=== PATIENT | male | born 1965 | race Caucasian/White ===

== ENCOUNTER → 2016-09-18 | Outpatient (CLI) | payer BC ==
[~2016-09-18] MED LIST: ASPIRIN81 MG PO; DULOXETINE 30MG30 MG PO; LAMISIL 250MG250 MG PO; LIPITOR20 MG PO; LISINOPRIL 10MG10 MG PO; METOPROLOL TART25 MG PO; PERCOCET 10 MG1 EACH PO
[2016-09-18 17:03] LABS: AMPHETAMINES/METAMPHETAMINES NEGATIVE ng/mL (<1000)
[2016-09-24 14:36] LABS: Opiates Negative (Cutoff=100)
== END ==
LOC: LAB 15:01
PROVIDERS: Anesthesiology
DX: Z79.899 Other long term (current) drug therapy (principal)

== ENCOUNTER → 2017-04-15 | Outpatient (CLI) | payer BC ==
[2017-04-15 12:19] LABS: LYMPH # 1.9 K/mm3 (0.7-4.5); LYMPH % 23.8 % (10-50)
[2017-04-15 17:02] LABS: BUN 11 mg/dL (7-18)
[2017-04-15 17:25] LABS: GFR (ESTIMATED) 78 ML/MIN (>60)
== END ==
LOC: LAB 11:56
PROVIDERS: Anesthesiology
DX: M51.16 Intervertebral disc disorders with radiculopathy, lumbar region (principal); Z01.812 Encounter for preprocedural laboratory examination

== ENCOUNTER 2017-04-16 08:04 | Day surgery (SDC) | payer BC ==
[~2017-04-16] VITALS: Ht 175.3 cm; Wt 100.7 kg
--- NOTE | 2017-04-16 10:33 | Operative Note ---
Surgeon/Diagnoses Surgeon/Front Office Coordinator(s) Date of procedure: 04/16/17 Surgeon: Vadim Vale MD Diagnoses Pre-op diagnosis: Degenerative disc disease of lumbar spine with lumbar radiculopathy symptoms Post-op diagnosis Same Procedure Procedure Procedure: Spinal cord stimulator trial with 2 epidural leads Indications: ALONDRA HAYWARD is a 51 year-old Male with a history of low back pain with lumbar radiculopathy symptoms. He has failed all conservative therapy including injections, oral medications, physical therapy and he is not a surgical candidate. He has significant pain in his back going down both legs RIGHT greater than LEFT. He has a successful neuropsychological evaluation. I have talked to him about spinal cord stimulation as he has more leg pain than back pain. I've answer all questions and explained the risk and benefits. He presents for spinal cord stimulator trial with 2 epidural leads today. Findings: None Procedure Description: Informed consent was obtained and the risk and benefits of the procedure was explained to the patient. The patient was taken to the procedure room and placed prone on the procedure table. He was prepped and draped in sterile fashion. He did receive antibiotics preoperatively. He was sedated with Versed and fentanyl. C-arm fluoroscopy was used to view the lumbar spine. The skin and septated tissues were dissected using lidocaine. A 17-gauge Touhy epidural needle was inserted and advanced into the L3-L4 interspace. After confirmation of needle placement in the epidural space stimulating lead was inserted and advanced very easily to the T9 T10 T11 vertebral bodies. We underwent test stimulation. Patient felt good stimulation down both legs. We placed a second needle into the L4-L5 interspace. Again after advancing into the epidural space using loss-of- resistance to air and fluoroscopic guidance a stimulating lead was inserted and advanced very easily to the T9-T10 and T11 vertebral bodies to the RIGHT of the first lead. We tested both leads. Impedances were found to be okay. Both leads covered all areas of pain from low back all the way to the feet. Patient tolerated the procedure well with no palpitations. Clemmons were withdrawn and the leads were secured in place. The patient was taken to recovery in stable condition. The patient was programmed by the [employer] agency sales representative. EBL (ml): 0 Anesthesia: LMAC Implants: Temporary spinal cord stimulator leads Complications: None Disposition Disposition: Plan and disposition: We will follow-up with this patient in 2-3 days to reprogram and then next week to pull his leads. If he has any problems or questions he is to call us in the pain clinic. at [phone]
[2017-04-16 14:10] VITALS: BP 118/82
--- NOTE | 2017-04-16 14:29 | CONSULT NOTE ---
History of Present Illness Consult Information Date of Consultation: 04/16/17 Referring Provider: Vadim Vale MD Reason for Consult/Visit: Possible neuro stimulator implant History of Present Illness: This patient is 51-year-old white male who is being treated for low back pain with lumbar radiculopathy symptoms. He continues to have significant pain in his legs and is burning in his feet. He is currently in a neurostimulator trial with [employer]. Patient is having no pain at this time. Patient will continue the trial for several days. Patient wants permanent placement if trial is successful. Allergies Coded Allergies: Penicillins (NA-HALLUCINATIONS 04/16/17) Current Home Medications Active Scripts Oxycodone 10 Mg\[id number] (Oxycodone-Acetaminophen 10-325) 1 TAB PO TIDP PRN PAIN #90 TAB Prov: 02/03/17 Reported Medications Aspirin 81 MG PO DAILY Metoprolol Tartrate 25 MG PO DAILY LISINOPRIL (Lisinopril) 10 MG PO DAILY Atorvastatin Calcium (Lipitor 20MG) 20 MG PO DAILY Duloxetine Hcl (Duloxetine 30MG Capsule) 60 MG PO DAILY Terbinafine Hydrochloride (Lamisil 250MG Tablet) 250 MG PO DAILY Medical/Surgical/Social Hx Medical History Hypertension, kidney stones, gastroesophageal reflux disease Surgical History Previous Surgery?Y PINCHED NERVE IN NECK LEFT ELBOW Social History Tobacco Use: N Type: Packs/day: If you ae a former smoker-when did you quit? Have you smoked in the last 30 days? Do you dip or chew tobacco? Are you exposed to second hand smoke? Alcohol/Drug Use: Denies Occupation: factory Marital Status: Support System: good Review of Systems ROS Systems reviewed and negative: , allergy/immunity, cardiovascular, constitutional, endocrine, Ear/Nose/Throat, eyes, heme, psychiatric, respiratory , skin Physical Exam/Findings Physical Exam Vital Signs Vital Signs Date Time Temp Pulse Resp B/P Pulse O2 O2 Flow FiO2 Ox Delivery Rate 04/16 1410 97.9 73 18 118/82 92 04/16 1206 65 18 137/80 92 04/16 1137 65 18 128/85 92 04/16 1135 68 18 132/89 92 04/16 1134 97.9 70 18 123/75 93 04/16 1130 97.9 73 18 121/67 93 04/16 0843 97.9 81 18 137/93 04/16 0838 97.9 81 18 137/93 96 General Appearance normal appearance Respiratory Status No: respiratory distress. Cardiovascular regular rate/rhythm Back gait normal, strt leg raising(L)-ABNL, strt leg raising(R)-ABNL, vertebral tenderness Neurologic alert, oriented x 3, sensory deficit (BLE) Mental status normal mood/affect Risk Assessment Opioid risk tool Opioid risk tool: CAGE-AID Questionaire CAGE-AID Questionaire Assessment/Plan Impression/Problem List 1. Degenerative disc disease 2. Lumbar radicular pain Plan: If the patient is successful with neurostimulator trial we will move forward with her and an placement. Patient has failed all conservative methods of treating his pain along with feeling nonsteroidal anti-inflammatory drugs and opioids. Patient continues to work. at 1505
== END 2017-04-16 12:30 | disposition home or self-care (01) ==
LOC: SDC 08:04
PROC: 00HU3MZ Insertion of Neurostimulator Lead into Spinal Canal, Percutaneous Approach (ICD-10-PCS; principal; 2017-04-16)
DX: M51.16 Intervertebral disc disorders with radiculopathy, lumbar region (principal)

== ENCOUNTER → 2017-04-22 | Day surgery (SDC) | payer BC ==
[~2017-04-22] VITALS: Ht 175.3 cm; Wt 100.7 kg
[2017-04-22 13:56] VITALS: BP 131/92
[2017-04-22 14:37] VITALS: BP 131/92
[2017-04-22 15:05] VITALS: BP 131/92
--- NOTE | 2017-04-22 15:17 | Procedure Note ---
Procedure detail Date of procedure: 04/22/17 Anesthesiologist: Thad Wood Complications: None Pre-procedure diagnosis: Degenerative disc disease lumbar spine multiple levels. Lumbar radiculopathy symptoms. CRPS type I RIGHT lower leg. Post-procedure diagnosis: Same. Indications for procedure: Very pleasant 51-year-old white male were treating with a spinal cord stim trial. He reports [facility] today for the temporary lead pull. Patient reports 70-80 percent improvement terms of his bilateral leg radiculopathy symptoms including feet. Patient states he was able to ambulate long distances without difficulty. Patient states lumbar back pain remained relatively the same. However, his lower leg and feet pain significantly reduced. Procedure detail: The fidelina removed from the lumbar spine area. This stimulator was turned off position. The leads were pulled without difficulty. The insertion site was clean and dry. No bleeding or drainage at the site. Site was cleaned with chlorhexidine. Band-Aids applied. Patient was discharged home without incident. Plan and disposition: Patient return to see Dr. Vale for repeat evaluation. at [id number]
== END ==
LOC: PM 13:45
DX: M51.16 Intervertebral disc disorders with radiculopathy, lumbar region (principal); G90.521 Complex regional pain syndrome I of right lower limb